=== PATIENT | female | born 2000 | race Asian ===

== ENCOUNTER 2021-06-16 20:43 | Emergency (ER) | payer OTHER ==
[~2021-06-16] VITALS: Ht 165.1 cm; Wt 59.0 kg
[2021-06-16 22:43] LABS: BASOPHILS % 0.4 % (0.0-2.0); EOSINOPHILS % 0.3 % (0.0-5.0); HEMATOCRIT. 42.1 % (36.0-48.0); HEMOGLOBIN. 13.7 g/dL (12.0-16.0); LYMPHOCYTES % 19.2 % (20.0-50.0); MEAN CORPUSCULAR HEMOGLOBIN 30.7 pg (28.0-32.0); MEAN CORPUSCULAR VOLUME 94.5 fL (81.0-99.0); MEAN PLATELET VOLUME 8.6 fl (7.4-10.4); MONOCYTES % 8.3 % (2.0-8.0); NEUTROPHILS % 71.8 % (40.0-76.0); PLATELET 339 x1000/uL (130-400); RED BLOOD CELL COUNT 4.45 mill/uL (4.2-5.4); RED CELL DISTRIBUTION WIDTH 13.3 % (11.6-14.6)
[2021-06-16 22:46] LABS: CLARITY URINE CLEAR (CLEAR); COLOR URINE YELLOW (YELLOW); KETONES URINE 3+ (NEGATIVE); LEUKOCYTE ESTERASE URINE TRACE (NEGATIVE); NITRITE URINE NEGATIVE (NEGATIVE); OCCULT BLOOD URINE 3+ (NEGATIVE); PH URINE 6.5 (4.5-8.0); PROTEIN URINE 1+ (NEGATIVE); UROBILINOGEN URINE 0.2 E.U./dL (0.2-1.0)
[2021-06-16 22:50] LABS: CHLORIDE 104 mEq/L (98-107)
[2021-06-16 22:52] LABS: PROTHROMBIN TIME 10.8 sec (9.6-11.0)
[2021-06-16 22:58] LABS: HCG SCREEN NEGATIVE
[2021-06-16] MEDS ORDERED: KETOROLAC 30MG/ML VIAL IV ONE (23:45)
[2021-06-16 23:58] VITALS: BP 130/70
[2021-06-17] MEDS ORDERED: NITR100C PO (01:14)
[2021-06-17] MEDS ORDERED: TOPUD PO (01:14)
[2021-06-17] MEDS ORDERED: T3 PO (01:24)
== END 2021-06-17 01:34 | disposition home or self-care (01) ==
LOC: ER 20:43
DX: N13.2 Hydronephrosis with renal and ureteral calculous obstruction (principal); N39.0 Urinary tract infection, site not specified
CPT/HCPCS: 36415; 74176; 80053; 81003; 81025; 84703; 85025; 96374; 99284